=== PATIENT | female | born 1990 | race African-American/Black ===

== ENCOUNTER 2022-08-25 12:31 | Observation (INO) ==
[2022-08-25] MEDS ORDERED: Iopamidol - 370 500 ML MLS IVP ONE (16:01)
[2022-08-25 16:33] LABS: Basophils % 0.4 %; Eosinophils # 0.1 K/mcL (0.0-0.6); Hematocrit 37.1 % (35.3-44.9); Hemoglobin 12.3 g/dL (11.5-15.4); Immature Granulocytes % 0.2 % (0-4); Lymphocytes # 2.2 K/mcL (0.6-4.6); Lymphocytes % 41.6 %; Mean Corpuscular HGB Conc 33.2 g/dL (31.6-35.5); Mean Corpuscular Hemoglobin 29.8 pg (28.0-33.3); Mean Corpuscular Volume 89.8 fL (83.0-100.0); Monocytes # 0.4 K/mcL (0.0-1.3); Monocytes % 7.6 %; Neutrophils # 2.6 K/mcL (1.6-8.9); Platelet Count 309 K/mcL (140-400); Red Blood Count 4.13 M/mcL (3.82-4.97); Red Cell Distribution Width 11.7 % (11.5-14.5); Segmented Neutrophils % 49.2 %; White Blood Count 5.2 K/mcL (4.3-11.1)
[2022-08-25 16:46] LABS: Alanine Aminotransferase 42 Units/L (7-52); Albumin 4.2 g/dL (3.5-5.7); Albumin/Globulin Ratio 1.2 (1.1-2.2); Alkaline Phosphatase 60 Units/L (34-104); Aspartate Amino Transferase 26 Units/L (13-39); BUN/Creatinine Ratio 16 (6-26); Bilirubin,Direct 0.1 mg/dL (0.0-0.2); Bilirubin,Indirect 0.2 mg/dL (0.0-1.0); Bilirubin,Total 0.3 mg/dL (0.3-1.0); Blood Urea Nitrogen 14 mg/dL (6-20); Calcium 9.2 mg/dL (8.6-10.3); Carbon Dioxide 30 mEq/L (23-29); Chloride 102 mEq/L (98-107); Ethanol < 10 mg/dL (Less than 10); Globulin 3.5 g/dL (2.4-3.5); Glucose 79 mg/dL (70-105); Osmolality,Calculated 285 (280-300); Sodium 138 mEq/L (136-145); Total Protein 7.7 g/dL (6.4-8.9); Troponin I < 0.03 ng/mL (< 0.04)
[2022-08-25 17:01] LABS: Amphetamine Screen,Urine Negative ng/mL (Cutoff=1000); Barbiturate Screen,Urine Negative ng/mL (Cutoff=200); Benzodiazepines Screen,Urine Negative ng/mL (Cutoff=200); Cannabinoid Screen,Urine Positive ng/mL (Cutoff = 50); Cocaine Screen,Urine Negative ng/mL (Cutoff= 300); Opiate Screen,Urine Negative ng/mL (Cutoff=300); Phencyclidine Screen,Urine Negative ng/mL (Cutoff=25)
[2022-08-25 18:08] LABS: Influenza A PCR Negative (Negative); Influenza B PCR Negative (Negative); Resp. Syncytial Virus PCR Negative (Negative)
[2022-08-25 18:09] LABS: SARS-CoV-2 by PCR (In House) Negative (Negative)
[2022-08-25] MEDS ORDERED: Melatonin 3 MG TABLET PO PRN (22:49)
[2022-08-25] MEDS ORDERED: Ondansetron ODT 4 MG TAB.RAPDIS SL PRN (22:49)
[2022-08-25] MEDS ORDERED: Naloxone 0.4 MG/ML INJ IVP PRN (22:49)
[2022-08-25] MEDS ORDERED: *HR* LORazepam 2 MG/ML VIAL IVP PRN (22:53)
[2022-08-26] MEDS: *HR* Buprenorphine HCl 8 MG TAB.SUBL SL SCH ×3 (00:36→21:14)
[2022-08-26 03:39] LABS: Hemoglobin 11.9 g/dL (11.5-15.4); Mean Corpuscular HGB Conc 33.1 g/dL (31.6-35.5); Mean Corpuscular Volume 87.8 fL (83.0-100.0); Mean Platelet Volume 9.7 fL (9.4-12.4); Platelet Count 295 K/mcL (140-400); Red Cell Distribution Width 11.6 % (11.5-14.5); White Blood Count 5.5 K/mcL (4.3-11.1)
[2022-08-26 04:07] LABS: Alanine Aminotransferase 39 Units/L (7-52); Albumin/Globulin Ratio 1.3 (1.1-2.2); Alkaline Phosphatase 50 Units/L (34-104); Aspartate Amino Transferase 24 Units/L (13-39); BUN/Creatinine Ratio 17 (6-26); Bilirubin,Total 0.4 mg/dL (0.3-1.0); Blood Urea Nitrogen 13 mg/dL (6-20); Carbon Dioxide 27 mEq/L (23-29); Chloride 104 mEq/L (98-107); Globulin 3.2 g/dL (2.4-3.5); Glucose 86 mg/dL (70-105); Magnesium 1.9 mg/dL (1.6-2.6); Osmolality,Calculated 283 (280-300); Potassium 3.9 mEq/L (3.5-5.1); Sodium 137 mEq/L (136-145); Total Protein 7.2 g/dL (6.4-8.9)
[2022-08-26] MEDS ORDERED: *HR* Buprenorphine HCl 8 MG TAB.SUBL SL SCH (09:00)
[2022-08-26] MEDS ORDERED: Nicotine 14 MG PATCH.TD24 TD SCH (09:00)
[2022-08-26] MEDS ORDERED: Gadolinium Contrast Agent (WT Based) IV PRN (09:27)
[2022-08-26] MEDS ORDERED: amLODIPine 5 MG TABLET PO SCH (11:00)
[2022-08-26] MEDS ORDERED: levETIRAcetam 250 MG TABLET PO SCH (18:00)
[2022-08-26 19:49] VITALS: BP 155/96; PULSE 85; TEMP 98.3; O2SAT 94
== END 2022-08-26 22:15 | disposition home or self-care (01) ==
LOC: 3BNU 12:31 → EMEROOARM 12:31 → SUATTDRO 22:14 → 3BNU 23:09
PROVIDERS: ADMIT Internal Medicine; ATTEND Registered Nurse